=== PATIENT | female | born 1995 | race Caucasian/White ===

== ENCOUNTER 2017-06-23 09:55 | Emergency (ER) | payer MEDICAID, OTHER ==
[~2017-06-23] VITALS: Ht 157.5 cm; Wt 72.0 kg
[~2017-06-23 09:55] MED LIST: PREN1TAB62 PO
[2017-06-23 09:57] VITALS: Ht 157.5 cm; Wt 72.0 kg
[2017-06-23] MEDS ORDERED: IBUPROFEN 600 MG TAB PO ONE (11:00)
--- NOTE | 2017-06-23 11:25 | RADRPT ---
PROCEDURE: XR Chest. CLINICAL INDICATION: Chest pain TECHNIQUE: Single frontal view of the chest was obtained COMPARISON: None FINDINGS: No pleural effusion or pneumothorax. No consolidation. Unremarkable cardiomediastinal silhouette. No acute osseous abnormality. IMPRESSION: No acute cardiopulmonary disease. RPTAT: EE Physician Agustin Date Time Electronically viewed and signed by Gianfranco Borden Physician on 06/23/2017 11:25 /
[2017-06-23] MEDS ORDERED: IBUP-1542 PO (11:36)
--- NOTE | 2017-06-23 12:07 | ERD ---
ER Documentation Chief Complaint Chief Complaint Complains of chest pain x 3 days HPI This is a 22-year-old female presents to the ER with chest pain that started this morning. States that yesterday she moved something she felt some chest wall pain, however the second and went away. This morning her chest pain was severe and is worse whenever she moves. Patient does not have any cough or cold symptoms. She denies any fevers or chills. Denies any shortness of breath. She has not had any recent travel or any recent surgeries. She does not smoke. There is no family history of cardiac events in the family. ROS 12 point review of systems was done, all negative except per HPI. Medications Home Meds Active Scripts Ibuprofen* (Motrin*) 600 Mg Tab, 600 MG PO Q6, #30 TAB Prov:KIRAN CARCAMO Teagan 06/23/17 Reported Medications Vit-Iron Fumarate-FA ( Vitamin Tablet) 1 Each Tablet, 1 TAB PO DAILY, TAB 11/16/15 Allergies Allergies: Coded Allergies: No Known Allergy (Unverified , 06/23/17) PMhx/Soc Medical and Surgical Hx: pt denies Medical Hx, pt denies Surgical Hx Hx Alcohol Use: No Hx Substance Use: No Hx Tobacco Use: No Smoking Status: Never smoker Physical Exam Vitals Vital Signs Date Time Temp Pulse Resp B/P Pulse Ox O2 Delivery O2 Flow Rate FiO2 06/23/17 09:57 98.8 78 20 117/67 100 Physical Exam GENERAL: The patient is well developed and appropriate for usual state of health , in no apparent distress. HEENT: Atraumatic. Conjunctivae are pink. Pupils equal, round, and reactive to light. Extraocular muscles are grossly intact. Bilateral tympanic membranes are clear with no evidence of erythema, effusion or dulling of the light reflex. The oropharynx is clear with no erythema or exudates. NECK: C-spine is soft and supple. There is no cervical lymphadenopathy. CHEST: Clear to auscultation bilaterally. There are no rales, wheezes or rhonchi. HEART: Regular rate and rhythm. No murmurs, clicks, rubs or gallops. ABDOMEN: Soft, nontender and nondistended. Good bowel sounds. No rebound or guarding. No gross peritonitis. No gross organomegaly or masses. No Lopez sign or McBurney point tenderness. No pulsatile masses. BACK: No midline or flank tenderness. EXTREMITIES: Equal pulses bilaterally. There is no peripheral clubbing, cyanosis or edema. No focal swelling or erythema. Full range of motion. Grossly neurovascularly intact. NEURO: Alert and oriented. Cranial nerves II through XII are intact. Motor strength in all 4 extremities with 5/5 strength. Sensation grossly intact. Normal speech and gait. SKIN: There is no apparent rash or petechia. The skin is warm and dry. Results 24 hrs Current Medications Medications (Trade) Dose Ordered Sig/Derek Route PRN Reason Start Time Stop Time Status Last Admin Dose Admin Ibuprofen (Motrin) 600 mg ONCE ONCE PO 06/23/17 11:00 06/23/17 11:01 DC 06/23/17 10:46 [id number] [address] Radiology Main Line: [phone] DIAGNOSTIC IMAGING REPORT Patient: TIFFANY MCFARLAND : 1995 Age: 22 Sex: F MR #: [id number] DOS: 06/23/17 0000 Ordering MD: KIRAN CARCAMO. PA-C Location: [facility] Room/Bed: PROCEDURE: XR Chest. CLINICAL INDICATION: Chest pain TECHNIQUE: Single frontal view of the chest was obtained COMPARISON: None FINDINGS: No pleural effusion or pneumothorax. No consolidation. Unremarkable cardiomediastinal silhouette. No acute osseous abnormality. IMPRESSION: No acute cardiopulmonary disease. RPTAT: EE Physician Agustin Date Time Electronically viewed and signed by Physician Agustin on 06/23/2017 11 :25 GC/ CC: KIRAN CARCAMO Procedures/MDM Differential diagnosis includes but is not limited to; STEMI, dissection, pneumothorax, PE, esophageal rupture, tamponade, pneumonia, pericarditis, GERD , musculoskeletal, endocarditis, anxiety. This is a 22-year-old female that presents to the ER with chest wall pain which is made worse with movement this is likely musculoskeletal in etiology. Suspicion for acute cardiac etiology is low. Patient's EKG was normal [address] elevation no T-wave inversion and was read by Dr. Santos. Patient was given ibuprofen in the ER and stated that this helped her pain. Patient is to follow-up with her primary care doctor within 1-2 days return to ER sooner if symptoms worsen. My medical decision making shared with the patient she understands and agrees with plan. Departure Diagnosis: Primary Impression: Chest wall pain Condition: Stable Patient Instructions: Chest Wall Pain, Costochondritis Additional Instructions: Call your primary care doctor TOMORROW for an appointment during the next 1-2 days.See the doctor sooner or return here if your condition worsens before your appointment time. KIRAN CARCAMO Jun 23, 2017 12:07
== END 2017-06-23 11:45 | disposition home or self-care (01) ==
LOC: FTE 09:55
DX: R07.89 Other chest pain (principal)
CPT/HCPCS: 71010; 93005; Z7502; Z7610

== ENCOUNTER 2018-02-14 19:25 | Emergency (ER) | END 2018-02-14 21:15 | disposition home or self-care (01) ==

== ENCOUNTER 2018-04-27 07:49 | Emergency (ER) | END 2018-04-27 09:32 | disposition home or self-care (01) ==

== ENCOUNTER 2018-06-29 08:34 | Emergency (ER) | END 2018-06-29 12:06 | disposition home or self-care (01) ==

== ENCOUNTER 2018-08-25 17:24 | Outpatient (CLI) | payer OTHER ==
[~2018-08-25] VITALS: Ht 157.5 cm; Wt 73.9 kg
[~2018-08-25 17:24] MED LIST changes: +CEPH-443 PO; +ERYT1OIN6 RIGHT EYE; +IBUP-1542 PO; +NAPH15DR OP; +ONDA4TAB14 PO
[2018-08-25 18:07] VITALS: Ht 157.5 cm; Wt 73.9 kg
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
== END 2018-08-25 20:24 | disposition home or self-care (01) ==
LOC: OBT 17:24 → L-D 17:26 → OBT 20:24
PROVIDERS: ATTEND Obstetrics & Gynecology
DX: O9A.212 Injury, poisoning and certain other consequences of external causes complicating pregnancy, second trimester (principal); R10.2 Pelvic and perineal pain; W51.XXXA Accidental striking against or bumped into by another person, initial encounter; Y92.89 Other specified places as the place of occurrence of the external cause; Z3A.20 20 weeks gestation of pregnancy
CPT/HCPCS: 36415; 76815; 81001; 86900; 86901; Z7500; G0463

== ENCOUNTER 2018-12-17 19:51 | Outpatient (CLI) | payer OTHER ==
[~2018-12-17] VITALS: Ht 157.5 cm; Wt 77.8 kg
[~2018-12-17 19:51] MED LIST changes: -CEPH-443 PO; -ERYT1OIN6 RIGHT EYE; -IBUP-1542 PO; -NAPH15DR OP; -ONDA4TAB14 PO
[2018-12-17 20:15] VITALS: Ht 157.5 cm; Wt 77.8 kg
[2018-12-17 20:16] VITALS: BP 121/79; PULSE 82; RESP 19
--- NOTE | 2018-12-17 21:46 | PN ---
Triage Information Date/Time Reason for visit: Uterine contractions Weeks of Gestation 36 weeks and 6 days /Para Diabetes: none Hypertention: none Objective Vital Signs Date Temp Pulse Resp B/P (MAP) Pulse Ox O2 O2 Flow FiO2 Time Delivery Rate 12/17/18 98.2 82 19 121/79 Room Air 20:16 (93) Heart Rate: 120's Heart Rate Comments Reactive Contractions: >10 Minutes Apart Exam Cervix closed Results/Medications Results 24 hrs Laboratory Tests Test 12/17/18 20:25 Urine Color YELLOW Urine Clarity SLIGHTLY CLOUDY A Urine pH 5.0 Urine Specific [place] 1.029 Urine Ketones NEGATIVE Urine Nitrite NEGATIVE Urine Bilirubin NEGATIVE Urine Urobilinogen 1+ H Urine Leukocyte Esterase NEGATIVE Urine Microscopic RBC 1 Urine Microscopic WBC 4 Urine Squamous Epithelial Cells FEW Urine Calcium Oxalate Crystals MODERATE Urine Bacteria FEW A Urine Hemoglobin NEGATIVE Urine Glucose NEGATIVE Urine Total Protein NEGATIVE Disposition: Discharge MARIA EUGENIA HAYES MD Dec 17, 2018 21:46
== END 2018-12-17 21:40 | disposition home or self-care (01) ==
LOC: OBT 19:51 → L-D 19:55 → OBT 21:40
PROVIDERS: ATTEND Obstetrics & Gynecology
DX: O62.9 Abnormality of forces of labor, unspecified (principal); Z3A.36 36 weeks gestation of pregnancy
CPT/HCPCS: 81001; Z7500; 81003; G0463

== ENCOUNTER 2018-12-25 11:48 | Inpatient (IN) | payer OTHER ==
[~2018-12-25] VITALS: Ht 157.5 cm; Wt 78.6 kg
[2018-12-25 12:06] VITALS: BP 118/72; PULSE 77; RESP 19; Ht 157.5 cm; Wt 78.6 kg
--- NOTE | 2018-12-25 14:08 | TRIAGE ---
OB Triage Datetime Report Generated by CPN: 12/25/2018 14:08 Datetime: 12/25/2018 14:00 Labor Evaluation Frequency: IRREGULAR Monitor Mode: External Duration (sec)2399: 50-90 Quality: Mild Pattern: Normal: <= 5 Contractions in 10 Minutes Resting Tone [place]: Relaxed Heart Rate FHR Baseline Rate: 140 Monitor Mode: External US FHR Baseline Changes: No Baseline Change Variability: Moderate 6-25 bpm Accelerations: 15X15 Decelerations: None Category: Category I Datetime: 12/25/2018 13:47 Vaginal Exam Dilatation (cms): 0.5 Effacement (%): 50 Station: -3 Exam By: Sara PRINCE Datetime: 12/25/2018 12:23 Assessment Type: Triage Maternal Assessment Level of Consciousness: Fully Conscious DTR's/Clonus: DTRs 2+; No Clonus Headache: Denies Blurred Vision: No Respiratory Effort: Unlabored; Regular Rhythm; Equal Expansion Breath Sounds, Left: Clear and Equal Breath Sounds, Right: Clear and Equal Nausea/Vomiting: Denies RUQ Epigastric Pain: Denies Lower Extremities Edema: None Degree: None Upper Extremities Edema: None Degree: None Facial Edema: None Fall Risk Assessment History of Falling: (0) No Secondary Diagnosis: (0) No Ambulatory Aid: (0) Bedrest/Nurse Assist IV Therapy: (0) No Gait: (0) Normal/Bedrest/Immobile Mental Status: (0) Oriented to Own Ability Fall Score: 0 Fall Risk Score Definition: No Risk: No action required Datetime: 12/25/2018 12:21 Time of Arrival: 12/25/2018 11:41 EGA: 38.0 Arrived By: Ambulatory Arrived From: Office Chief Complaint: DFM Movement: Decreased Contractions: Denies/Absent Rupture of Membranes: Denies Vaginal Bleeding: None Vaginal Discharge: Denies Recent Sexual Intercouse: Denies Abdominal Trauma: Not Applicable Patient Complaints: Other Time Provider Notified: 12/25/2018 14:03 Initial Plan: NST BPP Datetime: 12/25/2018 12:02 Labor Evaluation Frequency: OCCAS Monitor Mode: External Duration (sec)2399: 50-70 Quality: Mild Pattern: Normal: <= 5 Contractions in 10 Minutes Resting Tone [place]: Relaxed Heart Rate FHR Baseline Rate: 140 Monitor Mode: External US Variability: Moderate 6-25 bpm Accelerations: 15X15 Decelerations: None Category: Category I Datetime: 12/17/2018 20:38 Fall Score: 0 Fall Risk Score Definition: No Risk: No action required Datetime: 12/17/2018 20:34 EGA: 36.6 Datetime: 12/17/2018 20:19 EGA: 25.3 Datetime: 09/28/2018 08:48 EGA: 25.3 Datetime: 09/28/2018 08:47 Fall Score: 0 Fall Risk Score Definition: No Risk: No action required Datetime: 09/17/2018 09:11 Fall Score: 0 Fall Risk Score Definition: No Risk: No action required Datetime: 09/17/2018 09:07 EGA: 23.6 Datetime: 08/25/2018 19:14 Fall Score: 0 Fall Risk Score Definition: No Risk: No action required Datetime: 08/25/2018 18:14 EGA: 20.4 Datetime: 08/25/2018 18:13 EGA: 33.2 Datetime: 08/25/2018 17:25 Fall Score: 0 Fall Risk Score Definition: No Risk: No action required
[2018-12-25] MEDS ORDERED: LACTATED RINGER'S 1,000 ML IV ONE (15:36)
[2018-12-25] MEDS: LACTATED RINGER'S 1,000 ML IV SCH ×2 (16:53→23:44)
--- NOTE | 2018-12-25 19:31 | HP ---
Date/Time of Note Date/Time of Note DATE: 12/25/18 TIME: 19:28 OB - History Hx of Present Chief Complaint: Decreased movement Estimated Due Date: January 10, 2019 : 4 Para: 3 Spontaneous : 0 Therapeutic : 0 Care: Good Care Ultrasounds: Normal mid trimester US Obstetrical Complications: None Medical Complications: None Past Family/Social History * Past Medical, Surgical, Family and Obstetric Histories reviewed from chart. GBS Status: Positive OB Admission Exam Vital Signs Vital Signs Vital Signs Date Temp Pulse Resp B/P (MAP) Pulse Ox O2 O2 Flow FiO2 Time Delivery Rate 12/25/18 98.4 77 19 118/72 Room Air 12:06 (87) Physical Exam HEENT: WNL Membranes: Intact Heart Rate: 130's Accelerations: Accelerations Present Decelerations: No Decelerations Varibility: Moderate OB Assessment/Plan Reason for admission: other Other Assessment: borderline oligohydramnios Plan: Other Other plan: Admit IV hydration Continuous monitoring Repeat PANFILO in MARIA EUGENIA DAVALOS MD December 25, 2018 19:31
[2018-12-25] MEDS ORDERED: ACETAMINOPHEN 325 MG TAB PO PRN (20:30)
[2018-12-26] MEDS: LACTATED RINGER'S 1,000 ML IV SCH ×2 (06:06→12:52)
--- NOTE | 2018-12-26 22:19 | QN ---
Documentation Comment No complaint Afebrile VSS Strip Reactive PAFNILO 6 Continue IV hydration Repeat PANFILO in AM MARIA EUGENIA HAYES MD December 26, 2018 22:19
[2018-12-27] MEDS: LACTATED RINGER'S 1,000 ML IV SCH ×4 (02:29→23:56)
--- NOTE | 2018-12-27 14:12 | QN ---
Documentation Comment No complaint Afebrile VSS Strip Reactive PANFILO 8.3 Stable Continue present care Repeat PANFILO in AM. MARIA EUGENIA HAYES MD December 27, 2018 14:12
[2018-12-28] MEDS: LACTATED RINGER'S 1,000 ML IV SCH ×2 (07:57→20:30)
[2018-12-28] MEDS ORDERED: OXYTOCIN 30 UNITS/LR 500 ML IV PRN (10:30)
[2018-12-28] MEDS ORDERED: CARBOPROST 250 MCG INJ IM PRN (10:30)
[2018-12-28] MEDS ORDERED: LIDOCAINE 1% (MPF) 30 ML INJ INJ PRN (10:30)
[2018-12-28] MEDS ORDERED: OXYTOCIN 30 UNITS/LR 500 ML IV SCH ×2 (10:30)
[2018-12-28] MEDS ORDERED: METHYLERGONOVINE 0.2 MG INJ IM PRN (10:30)
[2018-12-28] MEDS ORDERED: MISOPROSTOL 200 MCG TAB PR PRN (10:30)
[2018-12-28] MEDS ORDERED: AMPICILLIN 2 GM/NS (PMX) 100 ML IVPB ONE (10:30)
[2018-12-28] MEDS: MISOPROSTOL 50 MCG CAPSULE PO PRN ×2 (11:24→16:02)
--- NOTE | 2018-12-28 14:29 | QN ---
Documentation Comment PANFILO 5.[address] Pathak ([facility]) who recommends to deliver the patient at this time Induction of labor with misoprostol. MARIA EUGENIA HAYES MD December 28, 2018 14:29
[2018-12-28] MEDS: AMPICILLIN 1 GM/NS (PMX) 50 ML IVPB SCH ×2 (16:59→21:08)
[2018-12-28] MEDS ORDERED: FENTAnyl 2MCG/ML-ROPIV 0.2% 100 ML ONE (20:00)
[2018-12-29] MEDS: MISOPROSTOL 50 MCG CAPSULE PO PRN ×4 (01:53→15:14)
[2018-12-29] MEDS: AMPICILLIN 1 GM/NS (PMX) 50 ML IVPB SCH ×6 (02:01→23:15)
[2018-12-29] MEDS: LACTATED RINGER'S 1,000 ML IV SCH ×4 (04:50→23:17)
[2018-12-29] MEDS ORDERED: OXYTOCIN 30 UNITS/LR 500 ML IV SCH (21:00)
[2018-12-30] MEDS: AMPICILLIN 1 GM/NS (PMX) 50 ML IVPB SCH (03:13)
[2018-12-30] MEDS ORDERED: BUTORPHANOL 2 MG INJ IV PRN ×2 (04:00)
--- NOTE | 2018-12-30 04:06 | PREAC ---
Date/Time of Note Date/Time of Note DATE: 12/30/18 TIME: 04:04 Anesthesia Eval and Record Evaluation Time Pre-Procedure Interview DATE: 12/30/18 TIME: 04:04 Age 23 Sex female NPO: 8 hrs Preoperative diagnosis Planned procedure labor epidural Past Medical History Past Medical History: Includes : : (4), Para: (3), Other (oligohydramnios) Surgery & Anesthesia Issues No known issue Meds Anticoagulation: No Beta José Miguel within 24 hr: No Reason Beta José Miguel not given: Pt. not on B-José Miguel Reported Medications Vit-Iron Fumarate-FA ( Vitamin Tablet) 1 Each Tablet, 1 TAB PO DAILY, TAB 11/16/15 Current Medications Acetaminophen (Tylenol Tab) 650 mg Q4H PRN PO MILD PAIN(1-3)OR ELEVATED TEMP Last administered on 12/25/18at 20:43; Admin Dose 650 MG; Start 12/25/18 at 20:30 Lidocaine (Xylocaine 1% (Mpf)) 30 ml ONCE PRN INJ .EPISIOTOMY; Start 12/28/18 at 10:30 Oxytocin/Lactated Ringer's 500 ml @ 500 mls/hr ONCE POST IV ; Start 12/28/18 at 10:30 Oxytocin/Lactated Ringer's 500 ml @ 125 mls/hr POST IV ; Start 12/28/18 at 10:30 Oxytocin/Lactated Ringer's 500 ml @ 0 mls/hr ONCE PRN IV .VAGINAL BLEEDING; Start 12/28/18 at 10:30 Methylergonovine Maleate (Methergine) 0.2 mg ONCE PRN IM .VAGINAL BLEEDING; Start 12/28/18 at 10:30 Carboprost Tromethamine (Hemabate) 250 mcg ONCE PRN IM .VAGINAL BLEEDING; Start 12/28/18 at 10:30 Misoprostol (Cytotec) 1,000 mcg ONCE PRN ND .VAGINAL BLEEDING; Start 12/28/18 at 10:30 Ampicillin 50 ml @ 100 mls/hr Q4 IVPB Last administered on 12/30/18at 03:13; Admin Dose 100 MLS/HR; Start 12/28/18 at 17:00 Lactated Ringer's 1,000 ml @ 125 mls/hr Q8H IV Last administered on 12/29/18at 23:17; Admin Dose 125 MLS/HR; Start 12/28/18 at 22:00 Oxytocin/Lactated Ringer's 500 ml @ 0 mls/hr FOR INDUCTION IV Last administered on 12/29/18at 20:53; Admin Dose 1 MLS/HR; Start 12/29/18 at 21:00 Butorphanol Tartrate (Stadol) 1 mg Q2H PRN IV .PAIN SCALE 1-5; Start 12/30/18 at 04:00; Status UNV Butorphanol Tartrate (Stadol) 2 mg Q2H PRN IV .PAIN SCALE 6-10; Start 12/30/18 at 04:00; Status UNV Meds reviewed: Yes Allergies Coded Allergies: No Known Allergy (Unverified , 09/17/18) Allergies Reviewed: Yes Labs/Studies Labs Reviewed: Reviewed by anesthesiologist Result Diagram: 12/28/18 1040 test: N/A Pre-procedure Exam Airway: Adequate mouth opening, Adequate thyromental dist Mallampati: Mallampati II Teeth: Normal Lung: Normal Heart: Normal ASA Physical Status ASA physical status: 2 Emergency: None Planned Anesthetic Neuraxial: Epidural Planned Pain Management Epidural, Parenteral pain med Pre-operative Attestations Prior to commencing anesthesia and surgery, the patient was re-evaluated, there was verification of: *The patient's identity *The results of appropriate recent lab work and preoperative vital signs *The above evaluation not changing prior to induction *Anesthetic plan, risk benefits, alternative and complications discussed with patient/family; questions answered; patient/family understands, accepts and wishes to proceed. ANNAMARIA FULTON MD December 30, 2018 04:06
[2018-12-30] MEDS: LACTATED RINGER'S 1,000 ML IV SCH (04:11)
[2018-12-30] MEDS ORDERED: FENTAnyl 2MCG/ML-ROPIV 0.2% 100 ML ONE (04:12)
[2018-12-30] MEDS ORDERED: DIPHENHYDRAMINE 50 MG INJ IV PRN (04:30)
[2018-12-30] MEDS ORDERED: FENTAnyl 2MCG/ML-ROPIV 0.2% 100 ML BAG EPI SCH (04:30)
[2018-12-30] MEDS ORDERED: NALOXONE (0.4 MG/ML) INJ IV PRN (04:30)
[2018-12-30] MEDS ORDERED: ONDANSETRON 4 MG INJ IV PRN (04:30)
--- NOTE | 2018-12-30 05:18 | PAC ---
Date/Time of Note Date/Time of Note DATE: 12/30/18 TIME: 05:17 Post-Anesthesia Notes Post-Anesthesia Note Activity: WNL Respiratory function: WNL Cardiovascular function: WNL Mental status: Baseline Pain reasonably controlled: Yes Hydration appropriate: Yes Nausea/Vomiting absent: Yes Comments BP: 138/62 HR: 81 RR: 15 T: 98 SaO2: 99% ANNAMARIA FULTON MD December 30, 2018 05:18
--- NOTE | 2018-12-30 07:09 | LDN ---
Date/Time of Note Date/Time of Note DATE: 12/30/18 TIME: 07:04 Delivery Summary of normal male Weeks of Gestation 38w2d Placenta Delivered: Spontaneously, Intact & Complete Meconium: none Episiotomy: No Perineal laceration: 0 Anesthesia type: Epidural Estimated blood loss: 100 Sponge & Needle done & correct: Yes All needle counts correct: Yes Any foreign bodies felt in the: No Infant Delivery Information Sex Infant Sex: male Apgars 1 Minute: 9 5 Minute: 9 Suctioning Nose & mouth suctioned at stephanie: Yes Delee suction performed: Yes Umbilical Cord Umbilical cord with: 3 Vessels Cord presentations: no nuchal cord Cord Blood was obtained: Yes Mother & Baby Disposition Disposition Mom & Baby to Maternity; Good: Yes Baby to NICU: No () JOSIE SHRESTHA MD December 30, 2018 07:09
[2018-12-30 08:20] VITALS: BP 122/80; PULSE 60; RESP 17
[2018-12-30] MEDS ORDERED: WITCH HAZEL/GLYCERIN PAD PR PRN (10:00)
[2018-12-30] MEDS ORDERED: OXYCODONE/ASPIRIN (4.88/325) TAB PO PRN ×2 (10:00)
[2018-12-30] MEDS ORDERED: BENZOCAINE 20% 56 ML SPRAY TOP PRN (10:00)
[2018-12-30] MEDS ORDERED: OXYTOCIN 30 UNITS/LR 500 ML IV PRN (10:00)
[2018-12-30] MEDS ORDERED: ZOLPIDEM 5 MG TAB PO PRN (10:00)
[2018-12-30] MEDS ORDERED: METHYLERGONOVINE 0.2 MG INJ IM PRN (10:00)
[2018-12-30] MEDS ORDERED: MISOPROSTOL 200 MCG TAB PR PRN (10:00)
[2018-12-30] MEDS ORDERED: CARBOPROST 250 MCG INJ IM PRN (10:00)
[2018-12-30] MEDS: IBUPROFEN 600 MG TAB PO SCH ×3 (11:33→23:52)
[2018-12-30] MEDS: SENNA/DOCUSATE NA (8.6MG/50MG) TAB PO SCH ×2 (11:33→23:52)
[2018-12-30 12:00] VITALS: BP 114/68; PULSE 90; RESP 17
[2018-12-30 16:00] VITALS: BP 119/70; PULSE 80; RESP 22
[2018-12-30] MEDS: LANOLIN HPA 1 PKT TOP PRN (18:02)
[2018-12-30 20:15] VITALS: BP 121/79; PULSE 80; RESP 18
[2018-12-31 04:03] VITALS: BP 109/63; PULSE 73; RESP 18
[2018-12-31] MEDS: IBUPROFEN 600 MG TAB PO SCH ×4 (05:31→23:45)
[2018-12-31 07:50] VITALS: BP 116/71; PULSE 76; RESP 18
[2018-12-31] MEDS: LANOLIN HPA 1 PKT TOP PRN (08:15)
[2018-12-31] MEDS: SENNA/DOCUSATE NA (8.6MG/50MG) TAB PO SCH ×2 (08:15→21:14)
--- NOTE | 2018-12-31 12:31 | DS ---
Date/Time of Note Date/Time of Note DATE: 12/31/18 TIME: 12:30 Obstetrical Discharge Record Final Diagnosis Final Diagnosis: Term delivered Other Final Diagnosis oligohydramnios Vaginal Delivery Obstetrical Delivery: Spontaneous Complications Induction: Yes Condition on Discharge Physical Assessment Voiding: Yes Bowel Movement: Yes Breast: Soft, non-tender, Filling Fundus: Firm Calf Tenderness: No Patient Condition: Stable MARIA EUGENIA HAYES MD December 31, 2018 12:31
[2018-12-31] MEDS ORDERED: MEASLES,MUMPS,RUBELLA VACCINE INJ SC* ONE (16:00)
[2018-12-31 16:19] VITALS: BP 111/60; PULSE 80; RESP 18
[2018-12-31 20:00] VITALS: BP 116/73; PULSE 81; RESP 20
[2019-01-01 03:41] VITALS: BP 119/64; PULSE 74; RESP 20
[2019-01-01] MEDS: IBUPROFEN 600 MG TAB PO SCH ×2 (05:26→11:41)
[2019-01-01 07:45] VITALS: BP 115/66; PULSE 71; RESP 18
[2019-01-01] MEDS: SENNA/DOCUSATE NA (8.6MG/50MG) TAB PO SCH (08:49)
[2019-01-01] MEDS ORDERED: DIPHTH/TET/ACEL PERTUSS (ADULT) 0.5 ML VIAL IM* ONE (09:00)
--- NOTE | 2019-01-02 13:19 | DELSUM ---
Delivery Summary A-C Datetime Report Generated by CPN: 01/02/2019 13:19 DELIVERY PERSONNEL [employer] Handlers: Ricafrente, Monica MATERNAL INFORMATION Delivery Anesthesia: Epidural Medications in Delivery: LR 500 + 30 units pitocin Delivery QBL (ml): 100 Placenta Cultured: No Maternal Complications: None LABOR SUMMARY EDC: 01/10/2019 00:00 No. Babies in Womb: 1 Attempted: No Labor Anesthesia: Epidural LABOR INFORMATION Reason for Induction: Oligohydramnios Onset of Labor: 12/30/2018 03:00 Complete Dilatation: 12/30/2018 04:59 Cervical Ripening Agents: Cytotec @ Oxytocin: Induction Group B Beta Strep: Positive Antibiotics # of Doses: 10 Antibiotics Time of Last Dose: 12/30/2018 03:13 Steroids Given: None Reason Steroids Not Administered: Not Applicable MEMBRANES Membranes Rupture Method: Spontaneous Rupture of Membranes: 12/30/2018 03:37 Length of Rupture (hr): 1.47 Amniotic Fluid Color: Clear Amniotic Fluid Amount: Moderate Amniotic Fluid Odor: Normal STAGES OF LABOR Stage 1 hr: 1 Stage 1 min: 59 Stage 2 hr: 0 Stage 2 min: 6 Stage 3 hr: 0 Stage 3 min: 4 Total Time in Labor hr: 2 Total Time in Labor min: 9 VAGINAL DELIVERY Episiotomy: None Laceration Extension: N/A Laceration Type: None Laceration Repair: Not Applicable Initial Vag Sponge Count: 10 Final Vag Sponge Count: 10 Initial Vag Sharps Count: 1 Final Vag Sharps Count: 1 Sponge Count Correct: Yes; Vaginal Sweep Performed Sharps Count Correct: Yes BABY A INFORMATION Infant Delivery Date/Time: 12/30/2018 05:05 Method of Delivery: Vaginal Born in Route : No : N/A Forceps: N/A Vacuum Extraction: N/A Shoulder Dystocia : N/A SHOULDER DYSTOCIA BABY A Delivery Date/Time: 12/30/2018 05:05 PRESENTATION/POSITION BABY A Presentation: Cephalic Cephalic Presentation: Vertex Vertex Position: Left Occipital Anterior Breech Presentation: N/A PLACENTA INFORMATION BABY A Placenta Delivery Time : 12/30/2018 05:09 Placenta Method of Delivery: Spontaneous Placenta Status: Delivered SCORES BABY A Heart Rate 1 min: >100 bpm Resp Effort 1 min: Good Cry Reflex Irritability 1 min: Cough/Sneeze/Pulls Away Muscle Tone 1 min: Active Motion Color 1 min: Body [place], Extremit Blue Resuscitation Effort 1 min: Tactile Stimulation SCORE 1 MIN: 9 Heart Rate 5 min: >100 bpm Resp Effort 5 min: Good Cry Reflex Irritability 5 min: Cough/Sneeze/Pulls Away Muscle Tone 5 min: Active Motion Color 5 min: Body [place], Extremit Blue Resuscitation Effort 5 min: Tactile Stimulation SCORE 5 MIN: 9 INFANT INFORMATION BABY A Gestational Age at Delivery: 38.3 Gestational Status: Early Term- 37- 38.6 Weeks Infant Outcome : Liveborn Infant Condition : Stable Infant Sex: Male IDENTIFICATION/MEDS BABY A ID Band Number: [id number] ID Band Location: Right Leg; Left Arm Sensor Applied: Yes Sensor Number: [id number] Sensor Location : Cord Clamp Vitamin K Given : Not Given Erythromycin Given: Not Given WEIGHT/LENGTH BABY A Infant Birthweight (gm): 3035 Infant Weight (lb): 6 Weight (oz): 11 Length (in): 18.00 Length (cm): 45.72 CORD INFORMATION BABY A No. Cord Vessels: 3 Nuchal Cord : Around Neck x1, Loose Nuchal Cord- Other: 0 True Knot: 0 Cord Blood Taken: Yes Banking/Donate Info: No Infant Suction: Mouth; Nose ASSESSMENT BABY A Infant Complications: None Physical Findings at Delivery: Within Normal Limits Infant Respirations: Appears Normal [employer] Hitch Driver/ALS Called : No Infant Care By: Mishel MCCRACKEN Transferred To: Remains with Mother
== END 2019-01-01 13:05 | disposition home or self-care (01) | DRG 806 ==
LOC: OBT 11:48 → L-D 11:49 → OBT 14:08 → L-D 14:08 → PP1 12-30 08:16
PROVIDERS: ADMIT Obstetrics & Gynecology; ATTEND Obstetrics & Gynecology
PROC: 10E0XZZ Delivery of Products of Conception, External Approach (ICD-10-PCS; principal; 2018-12-30)
PROC: 3E033VJ Introduction of Other Hormone into Peripheral Vein, Percutaneous Approach (ICD-10-PCS; 2018-12-30)
PROC: 3E0P7VZ Introduction of Hormone into Female Reproductive, Via Natural or Artificial Opening (ICD-10-PCS; 2018-12-30)
DX: O36.8130 Decreased fetal movements, third trimester, not applicable or unspecified (principal); O41.03X0 Oligohydramnios, third trimester, not applicable or unspecified; Z37.0 Single live birth; Z3A.38 38 weeks gestation of pregnancy
CPT/HCPCS: 62322; 76816; 76818; 85025; 85610; 85730; 86592; 86850; 86900; 86901; 87340; 90715; G0463; J0290; J2590; J3010; J7120